=== PATIENT | female | born 1970 | race Hispanic/Latino ===

== ENCOUNTER 2016-08-19 11:23 | Outpatient (CLI) | payer BC ==
--- NOTE | 2016-08-19 16:05 | Mammography Report ---
BILATERAL DIGITAL SCREENING MAMMOGRAM with CAD: 08/19/16 11:23:00 CLINICAL: Routine screening. COMPARISON:None available. FINDINGS: The breasts are almost entirely fatty.2 biopsy clips in the upper outer right breast are associated with a small circumscribed mass. No other mass, architectural distortion or suspicious calcifications. IMPRESSION: No mammographic evidence of malignancy. BI-RADS CATEGORY: 2 -- Benign RECOMMENDATION: Routine mammographic screening in one year. COMMENT: Patient follow-up letters are generated by our [employer] application.
== END 2016-08-19 11:24 | disposition home or self-care (01) ==
LOC: SPVWC 11:23
PROVIDERS: ATTEND Family Medicine
DX: Z12.31 Encounter for screening mammogram for malignant neoplasm of breast (principal)
CPT/HCPCS: 77067; G0202

== ENCOUNTER 2019-08-15 13:39 | Outpatient (CLI) | payer BC, OTHER ==
--- NOTE | 2019-08-15 15:20 | Mammography Report ---
DEXA BONE DENSITY SCAN INDICATION: SCREEN FOR OSTEO. COMPARISON: None available. LUMBAR SPINE (L1-L4): Bone mineral density (BMD) is 1.176 g/cm2. T-score is 1.2 (standard deviations of Young Adult mean). Z-score is 1.8 (standard deviations of Age Matched mean). LEFT FEMORAL NECK: Bone mineral density (BMD) is 0.737 g/cm2. T-score is -1.0 (standard deviations of Young Adult mean). Z-score is 0.3 (standard deviations of Age Matched mean). IMPRESSION: 1. WHO Classification: Normal bone density. Fracture Risk: Not Increased. Signer Name: Eitan Martinez MD Signed: 08/15/2019 3:15 PM Workstation Name: [id number]
--- NOTE | 2019-08-15 15:27 | Mammography Report ---
DIGITAL SCREENING MAMMOGRAM WITH CAD, 08/15/2019 INDICATION: Routine screening mammography. TECHNIQUE: Digital bilateral 2D mammography was obtained in the craniocaudal and mediolateral obliq ue projections. This examination was interpreted with the benefit of Computer-Aided Detection analysi s. COMPARISON: Prior mammogram 01/19/2018 and 08/19/2016 FINDINGS: Breast Density: There are scattered areas of fibroglandular density. There is no evidence of dominant mass, suspicious calcifications or architectural distortion in eithe r breast. There is a stable biopsy clip seen in the right breast, a stable nodular density in the rig ht breast, and stable benign-appearing calcifications in the right breast. There has been no signific ant change compared with the prior examinations. IMPRESSION: Follow up recommendation: Routine yearly BI-RADS Category 2: Benign. A "normal" or negative report should not discourage follow up or biopsy of a clinically significant f inding. A written summary of these findings will be mailed to the patient. The patient will be entered into a mammography reporting system which will generate a reminder letter for the patient's next appointmen t at the appropriate interval. The [employer] recommends yearly mammograms starting at age 40 and continuing as l manjula as a woman is in good health. Breast MRI is recommended for women with an approximate 20-25% or greater lifetime risk of breast cancer, including women with a strong family history of breast or ova shaquille cancer or who have been treated for Hodgkin's disease. Signer Name: Elvira Moore MD Signed: 08/15/2019 3:23 PM Workstation Name: [id number]
== END 2019-08-15 13:40 | disposition home or self-care (01) ==
LOC: SPVWC 13:39
PROVIDERS: ATTEND Obstetrics & Gynecology Gynecology
DX: Z12.31 Encounter for screening mammogram for malignant neoplasm of breast (principal); Z13.820 Encounter for screening for osteoporosis
CPT/HCPCS: 77067; 77080